=== PATIENT | male | born 2000 | race Caucasian/White ===

== ENCOUNTER 2018-06-25 22:04 | Emergency (ER) | payer OTHER ==
--- NOTE | 2018-06-25 22:45 | RADIOLOGY REPORT (SQ) ---
EXAM DESCRIPTION: XR HAND 3 OR MORE VIEWS COMPLETED DATE/TME: 06/25/2018 00:00 CLINICAL HISTORY: 18 years, Male, Injured hand last night. Thumb knuckle pain COMPARISON: None. NUMBER OF VIEWS: 3 TECHNIQUE: 3 view left hand LIMITATIONS: None. FINDINGS: Negative for fracture or dislocation. Soft tissues are unremarkable IMPRESSION: Negative exam copyright 2010 [facility] [id number] All Rights Reserved
[2018-06-25] MEDS ORDERED: ALBUTEROL SULFATE HFA (90 MCG/PUFF) 8 GM MDI (1 MDI/ER DISP) IH PRN (22:48)
[2018-06-25] MEDS ORDERED: IBUPROFEN 600 MG TABLET PO ONE (22:52)
[2018-06-25] MEDS ORDERED: ACETAMINOPHEN 325 MG TABLET PO ONE (22:53)
--- NOTE | 2018-06-25 22:55 | ER Document Report ---
ED General - General Chief Complaint: Breathing Difficulty Stated Complaint: ARM PAIN Time Seen by Provider: 06/25/18 22:38 Notes: Patient is a 18-year-old male who presents emergency department with left hand pain. He was at the [employer] last night, was drinking and does not remember what exactly happened to his hand. Last night his hand "did not look that bad." Today he woke up and he was feeling pain and noticed some bruising to his hand. He has trouble gripping items on his left hand. He does also have complaints of shortness of breath, but states he has had this for the past week. He has a history of asthma. He states he was seen at [place], and was prescribed inhaler, but was unable to [employer] [facility] of the inhaler. He is a current everyday smoker. TRAVEL OUTSIDE OF THE [place] IN LAST 30 DAYS: No - Related Data Allergies/Adverse Reactions: No Known Allergies Allergy (Unverified 06/25/18 22:12) Past Medical History - Social History Smoking Status: Current Every Day Smoker Frequency of alcohol use: Occasional Drug Abuse: None Family History: Reviewed & Not Pertinent Review of Systems - Review of Systems Notes: REVIEW OF SYSTEMS: CONSTITUTIONAL : Denies recent illness. Denies recent unintentional weight loss. Denies fever, chills, or sweats. EENT: Denies eye, ear, throat, or mouth pain, discharge, or symptoms. Denies nasal or sinus congestion. CARDIOVASCULAR: Denies chest pain. RESPIRATORY: See HPI GASTROINTESTINAL: Denies nausea, vomiting, and diarrhea. Denies abdominal pain. Denies constipation. GENITOURINARY: Denies difficulty urinating, burning, blood in urine, urgency or frequency. MUSCULOSKELETAL: See HPI SKIN: Denies rash, itchiness, or lesions HEMATOLOGIC : Denies easy bruising or bleeding. LYMPHATIC: Denies swollen, painful, enlarged glands. NEUROLOGICAL: Denies no numbness or tingling denies weakness. Denies headache. Denies altered mental status. Denies alteration in speech. PSYCHIATRIC: Denies stress, anxiety, alteration in sleep patterns, or depression. All other systems reviewed and negative. Physical Exam - Vital signs Vitals: Temp Pulse Resp BP Pulse Ox 98.0 F 79 15 134/83 H 97 06/25/18 22:15 06/25/18 22:15 06/25/18 22:15 06/25/18 22:15 06/25/18 22:15 - Notes Notes: PHYSICAL EXAMINATION: GENERAL: Appears well, healthy, well-nourished, no acute distress. HEAD: Normocephalic, atraumatic. EYES: PERRL, conjunctiva normal, all extraocular movements intact, sclera nonicteric ENT: Moist mucous membranes. NECK: Supple, no noticeable swelling, redness, rash. Normal range of motion. LUNGS: Expiratory wheezes to right upper lobe. Clear in all the lobes. CARDIOVASCULAR: S1-S2, regular rate, regular rhythm. Radial pulses 2+, normal. ABDOMEN: Normoactive bowel sounds. Soft, nontender, no guarding, no rebound tenderness, and no masses palpated. EXTREMITIES: Ecchymosis noted to left hand, mainly at the thumb. NEUROLOGICAL: Moves all extremities upon command. Strength 5/5 in all extremities. PSYCH: Normal mood, normal affect. SKIN: Warm, dry. No rash, lesions, ulcerations noted. Normal skin turgor. Course - Re-evaluation Re-evalutation: 06/25/18 22:57 Patient's x-rays of his left hand are negative. He does have pain at his anatomical snuffbox. I am concerned that he could have a possible scaphoid fracture. I do not suspect he has tendon injury. He will be sent to orthopedics for follow-up. A thumb spica splint will be provided. He will be given an albuterol inhaler, since he did not [employer] [facility] his inhaler from [facility]. I had a extensive conversation with him in regards to his verbal discharge instructions were given to the patient. Patient verbalized understanding. He is stable for discharge. - Vital Signs Vital signs: Temp Pulse Resp BP Pulse Ox 98.2 F 76 18 130/86 H 100 06/25/18 23:31 06/25/18 23:31 06/25/18 23:31 06/25/18 23:31 06/25/18 23:31 Discharge - Discharge Clinical Impression: Left hand pain, Shortness of breath, Wheezing Condition: Stable Disposition: HOME, SELF-CARE Additional Instructions: You were seen today in the emergency department for left hand pain. Your x-rays are normal, but with the pain in your wrist at the anatomical snuffbox area, you may have a fracture in a bone that is not seen on x-ray. You have been placed in a splint to help support your hand. You may take ibuprofen 600 mg and acetaminophen 1000 mg every 6 hours as needed for the pain. Please follow-up with orthopedics in the morning. You have also been provided an albuterol inhaler. You may take 1-2 puffs every 4 hours as needed for wheezing or shortness of breath. Please stop smoking as it does not help when you have difficulty breathing. Forms: Return to Work Referrals: SEN SCHAEFER MD [ACTIVE STAFF] - Follow up tomorrow
[2018-06-25 23:32] VITALS: BP 130/86
== END 2018-06-25 23:47 | disposition home or self-care (01) ==
LOC: ER 22:04
PROC: 2W3DX1Z Immobilization of Left Lower Arm using Splint (ICD-10-PCS; principal; 2018-06-25)
DX: S60.222A Contusion of left hand, initial encounter (principal); M79.642 Pain in left hand; R06.02 Shortness of breath; J45.909 Unspecified asthma, uncomplicated; X58.XXXA Exposure to other specified factors, initial encounter; F17.200 Nicotine dependence, unspecified, uncomplicated
CPT/HCPCS: 99284; 73130; 29125; J3490